=== PATIENT | female | born 1950 | race Caucasian/White ===

== ENCOUNTER 2024-05-28 10:49 | Emergency (ER) | payer OTHER, MEDICAID ==
[~2024-05-28] VITALS: Ht 149.9 cm; Wt 91.0 kg
[2024-05-28 11:16] VITALS: BP 129/69; PULSE 82; RESP 17; TEMP 98.2; O2SAT 94
== END 2024-05-28 12:10 | disposition home or self-care (01) ==
LOC: ER 10:49
DX: S93.402A Sprain of unspecified ligament of left ankle, initial encounter (principal); N18.6 End stage renal disease; Z86.73 Personal history of transient ischemic attack (TIA), and cerebral infarction without residual deficits; Z88.4 Allergy status to anesthetic agent; Z91.040 Latex allergy status; X58.XXXA Exposure to other specified factors, initial encounter; Y93.89 Activity, other specified; Y92.89 Other specified places as the place of occurrence of the external cause; Y99.8 Other external cause status
CPT/HCPCS: 73630